=== PATIENT | male | born 1975 | race Caucasian/White ===

== ENCOUNTER 2016-09-02 12:37 | Emergency (ER) | payer OTHER ==
[2016-09-02 16:08] LABS: BASOPHIL 0.4 % (0-2); EOSINOPHIL 2.3 % (0-5); HCT 44.1 % (42.0-52.0); HGB 15.7 g/dl (13.2-18.0); LYMPHOCYTE 35.7 % (15-48); MCH 28.3 pg (25.0-31.0); MCHC 35.6 g/dL (32.0-36.0); MCV 79.6 fL (78.0-100.0); MONOCYTE 5.6 % (0-12); MPV 9.7 fL (6.0-9.5); PLT 357 K/uL (150-400); RBC 5.54 M/uL (4.70-6.00); RDW 12.7 % (11.5-14.0); WBC 10.6 K/uL (4.0-10.5)
[2016-09-02 16:26] LABS: ALBUMIN 5.3 g/dL (3.5-5.0); BILIRUBIN - TOTAL 0.5 mg/dL (0.1-1.0); CREATININE 0.9 mg/dL (0.7-1.2); POTASSIUM 4.3 mmol/L (3.5-5.1); TOTAL PROTEIN 8.3 g/dL (6.4-8.3)
== END 2016-09-02 17:25 | disposition home or self-care (01) ==
LOC: FER 12:37
PROVIDERS: Nurse Practitioner
DX: I10 Essential (primary) hypertension (principal); Z79.899 Other long term (current) drug therapy
CPT/HCPCS: 36415; 70450; 80053; 84443; 85025; 93005